=== PATIENT | female | born 1940 | race Asian ===

== ENCOUNTER 2021-07-20 17:35 | Emergency (ER) | payer MEDICARE, MEDICAID ==
[~2021-07-20] VITALS: Ht 152.4 cm; Wt 54.5 kg
[2021-07-20 18:25] LABS: BASOPHILS % (AUTO) 0.3 % (0-1); EOSINOPHILS # (AUTO) 0.1 X10'3 (0-0.9); HEMATOCRIT 31.9 % (35.0-45.0); HEMOGLOBIN 10.5 g/dl (12.0-16.0); LYMPHOCYTES # (AUTO) 1.2 X10'3 (1.1-4.8); MEAN CORPUSCULAR HEMOGLOBIN 26.8 PG (27.0-31.0); MEAN CORPUSCULAR HGB CONC 32.7 g/dL (33.0-36.5); MEAN CORPUSCULAR VOLUME 81.9 FL (78-98); MEAN PLATELET VOLUME 9.1 FL (7.4-10.4); MONOCYTES # (AUTO) 0.7 X10'3 (0-0.9); MONOCYTES % (AUTO) 6.6 % (2-12); NEUTROPHILS # (AUTO) 8.9 X10'3 (1.8-7.7); NEUTROPHILS % (AUTO) 81.1 % (42-75); PLATELET COUNT 161 X10'3 (140-440); RED CELL DISTRIBUTION WIDTH 16.7 % (11.5-14.5)
[2021-07-20] MEDS ORDERED: normal saline 1000ML IV soln IVB ONE (18:30)
[2021-07-20] MEDS ORDERED: ondansetron/PF 4mg/2ml inj IV ONE (18:30)
[2021-07-20] MEDS ORDERED: pantoprazole 40 MG vial IV ONE (18:30)
[2021-07-20 18:38] LABS: ALANINE AMINOTRANSFERASE 27 U/L (12-78); ALBUMIN/GLOBULIN RATIO 0.7 (1.1-1.5); ALKALINE PHOSPHATASE 114 IU/L (46-116); ANION GAP 10 (8-16); ASPARTATE AMINO TRANSFERASE 16 U/L (10-37); BILIRUBIN,TOTAL 0.6 MG/DL (0.1-1.0); BLOOD UREA NITROGEN 31 MG/DL (7-18); BUN/CREATININE RATIO 22.8 (6.6-38.0); CALCIUM 9.7 MG/DL (8.5-10.1); CHLORIDE 105 MMOL/L (99-107); CREATININE 1.36 MG/DL (0.40-0.90); GLUCOSE 263 MG/DL (70-104); POTASSIUM 4.7 MMOL/L (3.5-5.1); SODIUM 141 MMOL/L (135-145); TOTAL CARBON DIOXIDE 26.1 MMOL/L (24-32); TOTAL PROTEIN 7.3 G/DL (6.4-8.2); eGFR 37 ML/MIN
[2021-07-20 18:59] LABS: LIPASE 430 U/L (73-393)
--- NOTE | 2021-07-20 20:21 | NUR ---
DR JAVIER AWARE OF PT'S FIRST TROPONIN RESULT
[2021-07-20 20:25] LABS: CLARITY,URINE CLEAR (Clear); COLOR,URINE YELLOW (Yellow); GLUCOSE, URINE NEGATIVE (Neg); KETONES,URINE 15 mg/dl (Neg); PROTEIN,URINE NEGATIVE (Neg); UA COLLECTION TYPE CLN CATCH MIDSTREAM
[2021-07-20 20:26] LABS: LEUKOCYTE ESTERASE ,URINE NEGATIVE (Neg); NITRITES, URINE NEGATIVE (Neg); OCCULT BLOOD,URINE Trace (Neg); UROBILINOGEN,URINE 0.2 E.U/dL (0.2-1.0)
[2021-07-20 20:34] LABS: BACTERIA,URINE NONE SEEN /HPF (Neg); MUCUS STRANDS FEW /LPF (Neg); RBC,URINE 0-2 /HPF (0-2); SQUAMOUS EPITHELIAL CELL,UR FEW /LPF (FEW); WBC,URINE 0-4 /HPF (0-4)
[2021-07-20] MEDS ORDERED: PANT-47 PO (21:21)
[2021-07-20] MEDS ORDERED: ONDA8TAB13 PO (21:21)
[2021-07-20 21:58] VITALS: BP 124/75
== END 2021-07-20 21:48 | disposition home or self-care (01) ==
LOC: ER 17:36
DX: R10.13 Epigastric pain (principal); R19.7 Diarrhea, unspecified; K29.80 Duodenitis without bleeding; I10 Essential (primary) hypertension; E11.9 Type 2 diabetes mellitus without complications; Z87.442 Personal history of urinary calculi; Z87.11 Personal history of peptic ulcer disease; Z86.2 Personal history of diseases of the blood and blood-forming organs and certain disorders involving the immune mechanism
CPT/HCPCS: 36415; 71045; 74176; 80053; 81001; 83605; 83690; 83880; 84484; 85025; 93005; 96374; 96375; 99285; C9113; J2405; J7030

== ENCOUNTER 2021-11-01 12:45 | Inpatient (IN) | payer MEDICARE, MEDICAID ==
[~2021-11-01] VITALS: Ht 154.9 cm; Wt 63.6 kg
[~2021-11-01 12:45] MED LIST: ONDA8TAB13 PO; PANT-47 PO
[2021-11-01 13:52] LABS: BASOPHILS % (AUTO) 0.1 % (0-1); EOSINOPHILS # (AUTO) 0.1 X10'3 (0-0.9); EOSINOPHILS % (AUTO) 0.7 % (0-6); HEMATOCRIT 24.4 % (35.0-45.0); HEMOGLOBIN 7.6 g/dl (12.0-16.0); LYMPHOCYTES # (AUTO) 0.6 X10'3 (1.1-4.8); LYMPHOCYTES % (AUTO) 3.3 % (21-51); MEAN CORPUSCULAR HEMOGLOBIN 26.6 PG (27.0-31.0); MEAN CORPUSCULAR VOLUME 85.9 FL (78-98); MEAN PLATELET VOLUME 9.5 FL (7.4-10.4); MONOCYTES # (AUTO) 1.2 X10'3 (0-0.9); MONOCYTES % (AUTO) 6.1 % (2-12); NEUTROPHILS # (AUTO) 17.5 X10'3 (1.8-7.7); NEUTROPHILS % (AUTO) 89.8 % (42-75); PLATELET COUNT 133 X10'3 (140-440); RED BLOOD COUNT 2.85 X10'6 (4.20-5.60); RED CELL DISTRIBUTION WIDTH 18.3 % (11.5-14.5); WHITE BLOOD COUNT 19.4 X10'3 (4.5-11.0)
[2021-11-01 14:16] LABS: ALANINE AMINOTRANSFERASE 20 U/L (12-78); ALBUMIN 2.1 G/DL (3.4-5.0); ALBUMIN/GLOBULIN RATIO 0.4 (1.1-1.5); ALKALINE PHOSPHATASE 241 IU/L (46-116); ANION GAP 14 (8-16); ASPARTATE AMINO TRANSFERASE 13 U/L (10-37); BILIRUBIN,TOTAL 0.4 MG/DL (0.1-1.0); BLOOD UREA NITROGEN 61 MG/DL (7-18); BUN/CREATININE RATIO 23.9 (6.6-38.0); CALCIUM 9.8 MG/DL (8.5-10.1); CHLORIDE 106 MMOL/L (99-107); CREATININE 2.55 MG/DL (0.40-0.90); GLUCOSE 423 MG/DL (70-104); LIPASE 81 U/L (73-393); SODIUM 133 MMOL/L (135-145); TOTAL PROTEIN 6.8 G/DL (6.4-8.2); eGFR 18 ML/MIN
[2021-11-01 14:20] LABS: POTASSIUM 6.4 MMOL/L (3.5-5.1); TOTAL CARBON DIOXIDE 13.5 MMOL/L (24-32)
[2021-11-01 15:08] LABS: ANISOCYTOSIS 2+; PLATELET ESTIMATE DECREASED; TOTAL CELLS COUNTED 100
[2021-11-01 15:09] LABS: BURR CELLS 2+; SCHISTOCYTES FEW
[2021-11-01 15:12] LABS: ROULEAUX 1+
[2021-11-01] MEDS ORDERED: normal saline 1000ml 1,000 ML IV ONE (16:25)
[2021-11-01] MEDS ORDERED: ondansetron/PF 4mg/2ml inj IV ONE (16:25)
[2021-11-01] MEDS ORDERED: pantoprazole IV 80 MG in normal saline 100ml IV soln 100 ML IV ONE (16:25)
[2021-11-01 16:42] LABS: APTT 29 SECONDS (22-32)
[2021-11-01 16:43] LABS: ETHANOL < 0.010 GM/DL (0.0-0.010)
[2021-11-01] MEDS: pantoprazole 40MG/NS 100ML BAG 100 ML IV SCH ×3 (16:54→18:00)
[2021-11-01 17:12] LABS: CLARITY,URINE CLOUDY (Clear); COLOR,URINE YELLOW (Yellow); GLUCOSE, URINE 250 mg/dl (Neg); KETONES,URINE NEGATIVE (Neg); LEUKOCYTE ESTERASE ,URINE MODERATE (Neg); NITRITES, URINE POSITIVE (Neg); OCCULT BLOOD,URINE MODERATE (Neg); PH,URINE 5.5 (4.8-8.0); PROTEIN,URINE 100 mg/dl (Neg); UROBILINOGEN,URINE 0.2 E.U/dL (0.2-1.0)
[2021-11-01 17:14] LABS: UA COLLECTION TYPE OTHER
[2021-11-01 17:20] LABS: BACTERIA,URINE 4+ /HPF (Neg); COARSE GRANULAR CAST 0-3 /LPF (NEGATIVE); MUCUS STRANDS NONE SEEN /LPF (Neg); SQUAMOUS EPITHELIAL CELL,UR MANY /LPF (FEW); WBC CLUMPS,URINE MODERATE /HPF (NEGATIVE); WBC,URINE 50-100 /HPF (0-4); YEAST FEW /HPF (NEGATIVE)
--- NOTE | 2021-11-01 17:24 | NUR ---
Lab rejected urine specimen due to contamination. IZABEL Morales was notified.
[2021-11-01 18:15] LABS: MEAN CORPUSCULAR HEMOGLOBIN 26.7 PG (27.0-31.0); MEAN CORPUSCULAR HGB CONC 31.7 g/dL (33.0-36.5); MEAN CORPUSCULAR VOLUME 84.2 FL (78-98); MEAN PLATELET VOLUME 9.2 FL (7.4-10.4); PLATELET COUNT 120 X10'3 (140-440); RED BLOOD COUNT 2.39 X10'6 (4.20-5.60); RED CELL DISTRIBUTION WIDTH 17.6 % (11.5-14.5); WHITE BLOOD COUNT 12.9 X10'3 (4.5-11.0)
[2021-11-01 18:23] LABS: HEMATOCRIT 20.1 % (35.0-45.0); HEMOGLOBIN 6.4 g/dl (12.0-16.0)
[2021-11-01 18:29] LABS: ALANINE AMINOTRANSFERASE 15 U/L (12-78); ALBUMIN 1.8 G/DL (3.4-5.0); ALBUMIN/GLOBULIN RATIO 0.5 (1.1-1.5); ALKALINE PHOSPHATASE 190 IU/L (46-116); ANION GAP 11 (8-16); ASPARTATE AMINO TRANSFERASE 9 U/L (10-37); BILIRUBIN,TOTAL 0.3 MG/DL (0.1-1.0); BLOOD UREA NITROGEN 58 MG/DL (7-18); BUN/CREATININE RATIO 26.1 (6.6-38.0); CALCIUM 8.5 MG/DL (8.5-10.1); CHLORIDE 110 MMOL/L (99-107); CREATININE 2.22 MG/DL (0.40-0.90); GLUCOSE 360 MG/DL (70-104); POTASSIUM 5.7 MMOL/L (3.5-5.1); SODIUM 136 MMOL/L (135-145); TOTAL PROTEIN 5.8 G/DL (6.4-8.2); eGFR 21 ML/MIN
[2021-11-01 18:36] LABS: TOTAL CARBON DIOXIDE 14.7 MMOL/L (24-32)
[2021-11-01] MEDS ORDERED: GABA-530 PO (19:12)
[2021-11-01] MEDS ORDERED: OMEP-50 PO (19:17)
[2021-11-01] MEDS ORDERED: FERR-119 PO (19:17)
[2021-11-01] MEDS ORDERED: GLIP10TA11 PO (19:17)
[2021-11-01] MEDS ORDERED: MV-M1TAB19 PO (19:17)
[2021-11-01] MEDS ORDERED: METF-1203 PO (19:17)
[2021-11-01] MEDS ORDERED: LISI10TA27 PO (19:17)
[2021-11-01] MEDS ORDERED: GEMF600T89 PO (19:17)
[2021-11-01] MEDS ORDERED: pantoprazole 40MG/NS 100ML BAG 100 ML IV ONE (19:20)
[2021-11-01 20:24] VITALS: BP 119/56
[2021-11-01 20:43] VITALS: BP 135/68
--- NOTE | 2021-11-01 21:00 | NUR ---
Patient complaint of Chest pain while transfusing 1 unit of RBC. EKG ordered. Rate of transfusion slowed to 125 ml/hr, and patient repositioned and head of bed elevated. MD notified. MD ordered to maintain transfusion at a low rate.
[2021-11-01 21:51] VITALS: BP 153/74
[2021-11-01] MEDS ORDERED: CefTRIAXone/D5W-Rocephin 1gm 50 ML IV ONE (22:15)
[2021-11-01] MEDS ORDERED: MESSAGE TO PHARMACY PO ONE (22:35)
[2021-11-01] MEDS ORDERED: magnesium 2GM in 50ml NS 50 ML IV PRN (22:35)
[2021-11-01] MEDS ORDERED: dextrose ORAL solution 15 GM/59 ML bottle PO PRN ×2 (22:35)
[2021-11-01] MEDS ORDERED: ondansetron/PF 4mg/2ml inj IV PRN (22:35)
[2021-11-01] MEDS ORDERED: glucagon, human recombinant 1mg kit SUBCUT PRN (22:35)
[2021-11-01] MEDS ORDERED: mag hydrox/Alum hydrox/simeth 30ml oral suspension PO PRN (22:35)
[2021-11-01] MEDS ORDERED: magnesium hydroxide 30ml (MOM) UD suspension PO PRN (22:35)
[2021-11-01] MEDS ORDERED: PERFLUTREN PROTEIN-A MICROSPHR (Optison) 0.22 MG/ML 3ML VIAL IV ONE (22:35)
[2021-11-01] MEDS ORDERED: dextrose 50%-water 50ml dispensing syringe IV PRN ×2 (22:35)
[2021-11-01 22:46] LABS: MAGNESIUM 1.4 MG/DL (1.5-2.4)
[2021-11-01 22:53] LABS: HEMOGLOBIN A1C 10.3 % (4.5-6.2)
[2021-11-01 22:58] VITALS: BP 174/79
[2021-11-01] MEDS ORDERED: CHOL3000 PO (23:03)
[2021-11-01] MEDS ORDERED: GABA300C PO (23:03)
--- NOTE | 2021-11-01 23:59 | NUR ---
Patient temp 101.4. notified. ordered Tylenol 650 mg PO and to transfuse second unit of RBC's when patient temp decreases.
[2021-11-02] VITALS (10 sets, daily range): BP systolic 83–165; BP diastolic 47–90
--- NOTE | 2021-11-02 | NUR ---
Patient in room WILLIE 357. I have received report from IZABEL Padilla and had the opportunity to ask questions and assume patient care.
[2021-11-02] MEDS: acetaminophen 325mg tablet PO PRN (00:25)
--- NOTE | 2021-11-02 00:30 | NUR ---
pt arrived via gurney. pt transferred to bed and settled in.
--- NOTE | 2021-11-02 02:03 | NUR ---
notified. Orders received.
--- NOTE | 2021-11-02 07:11 | NUR ---
Patient in room WILLIE 357. I have received report from Merari and had the opportunity to ask questions and assume patient care.
[2021-11-02] MEDS: K and/or MAG REPLACEMENT MC SCH ×2 (08:00→19:48)
[2021-11-02] MEDS ORDERED: docusate sod 100mg capsule PO SCH (08:00)
[2021-11-02] MEDS ORDERED: pantoprazole 40MG/NS 100ML BAG 100 ML IV SCH (08:00)
[2021-11-02 08:23] LABS: BASOPHILS % (AUTO) 0.1 % (0-1); EOSINOPHILS # (AUTO) 0.1 X10'3 (0-0.9); EOSINOPHILS % (AUTO) 0.3 % (0-6); HEMATOCRIT 30.9 % (35.0-45.0); HEMOGLOBIN 9.9 g/dl (12.0-16.0); LYMPHOCYTES # (AUTO) 0.6 X10'3 (1.1-4.8); MEAN CORPUSCULAR HEMOGLOBIN 28.3 PG (27.0-31.0); MEAN CORPUSCULAR HGB CONC 32.1 g/dL (33.0-36.5); MEAN PLATELET VOLUME 10.6 FL (7.4-10.4); MONOCYTES # (AUTO) 1.6 X10'3 (0-0.9); NEUTROPHILS # (AUTO) 25.4 X10'3 (1.8-7.7); NEUTROPHILS % (AUTO) 91.6 % (42-75); PLATELET COUNT 108 X10'3 (140-440); RED BLOOD COUNT 3.51 X10'6 (4.20-5.60)
[2021-11-02 08:37] LABS: ALANINE AMINOTRANSFERASE 16 U/L (12-78); ALBUMIN 1.9 G/DL (3.4-5.0); ALBUMIN/GLOBULIN RATIO 0.5 (1.1-1.5); ALKALINE PHOSPHATASE 205 IU/L (46-116); ANION GAP 10 (8-16); ASPARTATE AMINO TRANSFERASE 25 U/L (10-37); BILIRUBIN,TOTAL 0.6 MG/DL (0.1-1.0); BLOOD UREA NITROGEN 57 MG/DL (7-18); BUN/CREATININE RATIO 23.7 (6.6-38.0); CALCIUM 9.1 MG/DL (8.5-10.1); CHLORIDE 115 MMOL/L (99-107); CREATININE 2.41 MG/DL (0.40-0.90); GLUCOSE 183 MG/DL (70-104); MAGNESIUM 1.2 MG/DL (1.5-2.4); SODIUM 139 MMOL/L (135-145); TOTAL PROTEIN 6.1 G/DL (6.4-8.2); eGFR 19 ML/MIN
[2021-11-02 08:40] LABS: POTASSIUM 6.7 MMOL/L (3.5-5.1); TOTAL CARBON DIOXIDE 14.4 MMOL/L (24-32)
[2021-11-02 08:44] LABS: WHITE BLOOD COUNT 27.7 X10'3 (4.5-11.0)
[2021-11-02] MEDS ORDERED: calcium gluconate inj. 1 GM in normal saline 100ml IV soln 100 ML IV ONE (09:10)
[2021-11-02] MEDS ORDERED: albuterol 2.5 MG/3 ML nebule NEB ONE (09:10)
[2021-11-02] MEDS ORDERED: insulin regular, human 10 units/0.1 ml syringe IV ONE (09:10)
[2021-11-02] MEDS ORDERED: normal saline 1000ml 1,000 ML IV SCH (09:10)
[2021-11-02] MEDS ORDERED: sodium polystyrene sulfonate 15gm/60ml oral suspension PO ONE (09:10)
[2021-11-02] MEDS ORDERED: dextrose 50%-water 50ml dispensing syringe IV ONE ×2 (09:10→10:25)
[2021-11-02] MEDS ORDERED: vancomycin/NS 1 GM ADD-VANTAGE 250 ML X 1 DOSE IV ONE (09:25)
[2021-11-02] MEDS ORDERED: vancomycin/NS 1 GM ADD-VANTAGE 250 ML X 1 DOSE IV PRN (09:25)
--- NOTE | 2021-11-02 09:26 | NUR ---
PAGER ID: [phone] MESSAGE: Christina [place] in 357B. Order for Kayexalate. Currently patient is NPO with suspected GI bleed. Please call to confirm orders. thank you Karlos
--- NOTE | 2021-11-02 09:27 | NUR ---
Confirmed with Dr Carpio, to administer Kayexalate
[2021-11-02] MEDS ORDERED: CALCIUM GLUC 1gm/50ml NACL,iso 50 ML IV ONE (09:30)
--- NOTE | 2021-11-02 09:30 | NUR ---
PAGER ID: [phone] MESSAGE: Natalya [place] [id number] Dr cancelled EGD for today, states will need to re order EGD when stable thank you Karlos
[2021-11-02 09:49] LABS: ANISOCYTOSIS 1+; PLATELET ESTIMATE DECREASED; POIKILOCYTOSIS FEW; TOTAL CELLS COUNTED 100
[2021-11-02] MEDS ORDERED: albuterol 2.5 MG/3 ML nebule CONTNEB STA (10:24)
[2021-11-02] MEDS ORDERED: insulin regular, human U-100 3ml vial - multi-dose IV ONE (10:25)
[2021-11-02] MEDS ORDERED: sodium bicarbonate (8.4%) 1 mEq/ml syringe IV ONE (10:25)
[2021-11-02] MEDS ORDERED: pantoprazole 40MG/D5 100ML BAG 100 ML IV SCH (11:00)
--- NOTE | 2021-11-02 11:10 | NUR ---
Per NSG supervisor vegetable farming and Jeffrey in pharmacy, ok for surgical scrub technician to push IV humulin on the surgical floor, per Dr Carpio and Dr Hodge's order. agriculture manager aware.
[2021-11-02] MEDS: SODIUM ZIRCONIUM CYCLOSILICATE 10 GM POWD.PACK PO SCH ×3 (12:10→20:31)
[2021-11-02] MEDS: pantoprazole 40MG/NS 100ML BAG 100 ML IV SCH ×3 (12:24→20:30)
[2021-11-02] MEDS: sodium bicarbonate (8.4%) inj. 150 MEQ in dextrose 5%-water 1,000 ML IV SCH ×2 (12:26→20:04)
[2021-11-02] MEDS: insulin Lispro (HumaLOG) vial - multi-dose SQ SCH ×2 (12:59→17:37)
[2021-11-02 13:37] LABS: ALBUMIN 1.6 G/DL (3.4-5.0); ANION GAP 8 (8-16); BLOOD UREA NITROGEN 52 MG/DL (7-18); CALCIUM 8.5 MG/DL (8.5-10.1); CHLORIDE 110 MMOL/L (99-107); CREATININE 2.36 MG/DL (0.40-0.90); POTASSIUM 4.8 MMOL/L (3.5-5.1); SODIUM 136 MMOL/L (135-145); TOTAL CARBON DIOXIDE 17.7 MMOL/L (24-32); eGFR 20 ML/MIN
[2021-11-02 13:38] LABS: GLUCOSE 464 MG/DL (70-104)
--- NOTE | 2021-11-02 14:07 | NUR ---
DM consult: Pt with T2DM with A1c 10.3%. Pt appeared to be sleeping during RD visit. Written and verbal DM education was provided to patient's daughter at bedside. Per daughter pt sees a physician regularly, takes medications per rx, and checks BG levels every day. RD contact information provided with encouragement to reach out if needed. Per daughter pt does not have food allergies and does have some difficulty swallowing hard foods. Daughter requests soft to chew foods with diet advancement, dietary notified. Will continue to follow. Addendum: 11/02/21 at [address] Amended: Links added.
[2021-11-02] MEDS ORDERED: piperacillin/tazo 3.375gm/50ml 50 ML IV SCH (16:00)
[2021-11-02] MEDS: amLODIPine 5mg tablet PO SCH (16:43)
--- NOTE | 2021-11-02 18:13 | NUR ---
Problems reprioritized. Patient report given to Breana PAIZ, questions answered & plan of care reviewed with Breana PAIZ.
--- NOTE | 2021-11-02 18:58 | NUR ---
Patient in room PCU 3023. I have received report from IZABEL Guerrero, and had the opportunity to ask questions and assume patient care. Daughter in room with pt. No c/o voiced at this time.
[2021-11-02] MEDS: morphine 2 MG/ML inj. syringe IV PRN ×2 (20:07→22:38)
[2021-11-02] MEDS: piperacillin/tazo 3.375gm/50ml 50 ML IV SCH (20:10)
[2021-11-02 20:37] LABS: ALBUMIN 1.9 G/DL (3.4-5.0); ANION GAP 12 (8-16); BLOOD UREA NITROGEN 46 MG/DL (7-18); BUN/CREATININE RATIO 20.4 (6.6-38.0); CHLORIDE 110 MMOL/L (99-107); CREATININE 2.25 MG/DL (0.40-0.90); GLUCOSE 228 MG/DL (70-104); POTASSIUM 4.8 MMOL/L (3.5-5.1); SODIUM 140 MMOL/L (135-145); TOTAL CARBON DIOXIDE 17.9 MMOL/L (24-32); eGFR 21 ML/MIN
[2021-11-02 21:05] LABS: BASOPHILS % (AUTO) 0.3 % (0-1); EOSINOPHILS # (AUTO) 0.1 X10'3 (0-0.9); EOSINOPHILS % (AUTO) 0.5 % (0-6); HEMATOCRIT 29.8 % (35.0-45.0); LYMPHOCYTES # (AUTO) 0.2 X10'3 (1.1-4.8); LYMPHOCYTES % (AUTO) 1.3 % (21-51); MEAN CORPUSCULAR HEMOGLOBIN 28.6 PG (27.0-31.0); MEAN CORPUSCULAR HGB CONC 33.6 g/dL (33.0-36.5); MEAN CORPUSCULAR VOLUME 85.1 FL (78-98); MEAN PLATELET VOLUME 9.9 FL (7.4-10.4); MONOCYTES # (AUTO) 0.2 X10'3 (0-0.9); MONOCYTES % (AUTO) 1.8 % (2-12); NEUTROPHILS # (AUTO) 12.6 X10'3 (1.8-7.7); NEUTROPHILS % (AUTO) 96.1 % (42-75); PLATELET COUNT 97 X10'3 (140-440); RED CELL DISTRIBUTION WIDTH 17.3 % (11.5-14.5); WHITE BLOOD COUNT 13.1 X10'3 (4.5-11.0)
[2021-11-02] MEDS: insulin glargine (Lantus) pen - multi-dose SQ SCH (22:28)
[2021-11-03] MEDS: pantoprazole 40MG/NS 100ML BAG 100 ML IV SCH ×5 (01:00→22:09)
[2021-11-03] MEDS: sodium bicarbonate (8.4%) inj. 150 MEQ in dextrose 5%-water 1,000 ML IV SCH ×2 (02:20→22:09)
[2021-11-03] MEDS: VANCOMYCIN LEVEL IV SCH (02:58)
[2021-11-03 03:29] LABS: BASOPHILS # (AUTO) 0.1 X10'3 (0-0.2); BASOPHILS % (AUTO) 0.3 % (0-1); EOSINOPHILS # (AUTO) 0.1 X10'3 (0-0.9); EOSINOPHILS % (AUTO) 0.4 % (0-6); HEMATOCRIT 26.8 % (35.0-45.0); HEMOGLOBIN 8.8 g/dl (12.0-16.0); LYMPHOCYTES # (AUTO) 0.6 X10'3 (1.1-4.8); LYMPHOCYTES % (AUTO) 2.8 % (21-51); MEAN CORPUSCULAR HEMOGLOBIN 28.4 PG (27.0-31.0); MEAN CORPUSCULAR HGB CONC 32.9 g/dL (33.0-36.5); MEAN CORPUSCULAR VOLUME 86.1 FL (78-98); MEAN PLATELET VOLUME 10.2 FL (7.4-10.4); MONOCYTES # (AUTO) 1.4 X10'3 (0-0.9); MONOCYTES % (AUTO) 6.4 % (2-12); NEUTROPHILS # (AUTO) 19.5 X10'3 (1.8-7.7); NEUTROPHILS % (AUTO) 90.1 % (42-75); PLATELET COUNT 94 X10'3 (140-440); RED BLOOD COUNT 3.11 X10'6 (4.20-5.60); RED CELL DISTRIBUTION WIDTH 17.4 % (11.5-14.5); WHITE BLOOD COUNT 21.7 X10'3 (4.5-11.0)
[2021-11-03 03:37] LABS: ALANINE AMINOTRANSFERASE 13 U/L (12-78); ALBUMIN 1.6 G/DL (3.4-5.0); ALBUMIN/GLOBULIN RATIO 0.4 (1.1-1.5); ALKALINE PHOSPHATASE 184 IU/L (46-116); ANION GAP 8 (8-16); ASPARTATE AMINO TRANSFERASE 17 U/L (10-37); BILIRUBIN,TOTAL 0.8 MG/DL (0.1-1.0); BLOOD UREA NITROGEN 42 MG/DL (7-18); BUN/CREATININE RATIO 19.8 (6.6-38.0); CALCIUM 8.4 MG/DL (8.5-10.1); CHLORIDE 112 MMOL/L (99-107); CREATININE 2.12 MG/DL (0.40-0.90); GLUCOSE 231 MG/DL (70-104); MAGNESIUM 1.1 MG/DL (1.5-2.4); POTASSIUM 5.4 MMOL/L (3.5-5.1); SODIUM 142 MMOL/L (135-145); TOTAL CARBON DIOXIDE 21.7 MMOL/L (24-32); TOTAL PROTEIN 5.4 G/DL (6.4-8.2); VANCOMYCIN,RANDOM 11.4 UG/ML; eGFR 22 ML/MIN
[2021-11-03] MEDS: insulin Lispro (HumaLOG) vial - multi-dose SQ SCH ×5 (05:40→22:02)
[2021-11-03 06:00] VITALS: BP 139/69
--- NOTE | 2021-11-03 06:59 | NUR ---
Problems reprioritized. Patient report given, questions answered & plan of care reviewed with IZABEL Guerrero.
[2021-11-03] MEDS: K and/or MAG REPLACEMENT MC SCH ×2 (08:00→20:00)
[2021-11-03] MEDS: SODIUM ZIRCONIUM CYCLOSILICATE 10 GM POWD.PACK PO SCH ×3 (08:54→21:00)
[2021-11-03] MEDS: piperacillin/tazo 3.375gm/50ml 50 ML IV SCH ×2 (08:55→20:31)
[2021-11-03] MEDS: amLODIPine 5mg tablet PO SCH (08:55)
[2021-11-03] MEDS: morphine 2 MG/ML inj. syringe IV PRN ×4 (08:56→20:34)
[2021-11-03 09:23] LABS: ALBUMIN 1.5 G/DL (3.4-5.0); ANION GAP 6 (8-16); BLOOD UREA NITROGEN 37 MG/DL (7-18); BUN/CREATININE RATIO 18.2 (6.6-38.0); CALCIUM 8.2 MG/DL (8.5-10.1); CHLORIDE 109 MMOL/L (99-107); CREATININE 2.03 MG/DL (0.40-0.90); GLUCOSE 252 MG/DL (70-104); POTASSIUM 4.6 MMOL/L (3.5-5.1); SODIUM 142 MMOL/L (135-145); TOTAL CARBON DIOXIDE 26.7 MMOL/L (24-32); eGFR 24 ML/MIN
[2021-11-03 11:00] VITALS: BP 116/65
[2021-11-03 11:19] LABS: CLARITY,URINE SLIGHTLY CLOUDY (Clear); COLOR,URINE YELLOW (Yellow); GLUCOSE, URINE NEGATIVE (Neg); KETONES,URINE NEGATIVE (Neg); LEUKOCYTE ESTERASE ,URINE NEGATIVE (Neg); NITRITES, URINE NEGATIVE (Neg); OCCULT BLOOD,URINE MODERATE (Neg); PROTEIN,URINE 30 mg/dl (Neg)
[2021-11-03 11:21] LABS: UA COLLECTION TYPE FOLEY CATH
[2021-11-03 11:27] LABS: BACTERIA,URINE FEW /HPF (Neg); RBC,URINE 20-50 /HPF (0-2)
[2021-11-03 11:28] LABS: COARSE GRANULAR CAST 0-3 /LPF (NEGATIVE)
[2021-11-03 11:29] LABS: SQUAMOUS EPITHELIAL CELL,UR NONE SEEN /LPF (FEW)
[2021-11-03] MEDS ORDERED: vancomycin/NS 1 GM ADD-VANTAGE 250 ML X 1 DOSE IV ONE (11:45)
[2021-11-03 13:06] LABS: ALBUMIN 1.6 G/DL (3.4-5.0); ANION GAP 5 (8-16); BLOOD UREA NITROGEN 36 MG/DL (7-18); CHLORIDE 109 MMOL/L (99-107); GLUCOSE 213 MG/DL (70-104); SODIUM 144 MMOL/L (135-145); TOTAL CARBON DIOXIDE 29.7 MMOL/L (24-32); eGFR 24 ML/MIN
--- NOTE | 2021-11-03 14:04 | NUR ---
late IV vanco Vanco given late due to arriving late from pharmacy. [facility]
--- NOTE | 2021-11-03 14:08 | NUR ---
Yolanda [facility] PAGER ID: [phone] MESSAGE: Dr. Yoon pt in room 3023A Vannesa [place] potassium is 4.0 would you like me to hold the lokelma?
[2021-11-03 15:00] VITALS: BP 157/76
--- NOTE | 2021-11-03 16:25 | NUR ---
severe abd pain PAGER ID: [phone] MESSAGE: Dr. Yoon pt in room 3023A Felix is complaining of severe abdominal pain that wasn't relieved with IV morphine; I told her not to eat anything else for the time being; I didn't know if it coincided with her lunch. [facility]
--- NOTE | 2021-11-03 16:28 | NUR ---
Per Dr. Yoon place patient as NPO due to severe abdominal pain. No further orders at this time. [facility]
[2021-11-03 17:21] LABS: ALBUMIN 1.7 G/DL (3.4-5.0); ANION GAP 6 (8-16); BLOOD UREA NITROGEN 32 MG/DL (7-18); BUN/CREATININE RATIO 18.2 (6.6-38.0); CALCIUM 7.8 MG/DL (8.5-10.1); CHLORIDE 105 MMOL/L (99-107); CREATININE 1.76 MG/DL (0.40-0.90); GLUCOSE 363 MG/DL (70-104); POTASSIUM 3.8 MMOL/L (3.5-5.1); SODIUM 140 MMOL/L (135-145); TOTAL CARBON DIOXIDE 28.7 MMOL/L (24-32); eGFR 28 ML/MIN
--- NOTE | 2021-11-03 17:23 | NUR ---
Pt. now NPO; blood sugar 309, which qualifies her for 19u on a level 5; With patient not eating, RN will give 10u and continue to monitor tonight; Will report off to NOC shift.
[2021-11-03 18:00] VITALS: BP 134/68
--- NOTE | 2021-11-03 18:15 | NUR ---
Patient in room PCU 3023. I have received report from IZABEL Guerrero, and had the opportunity to ask questions and assume patient care.
[2021-11-03] MEDS: lactobacillus rhamnosus 10,000 MMU CELLS/CAPSULE PO SCH (20:00)
[2021-11-03] MEDS: diatr meglu/diatrizoate 30ml oral sol.-(3 dose) bottle PO SCH (20:24)
[2021-11-03] MEDS: insulin glargine (Lantus) pen - multi-dose SQ SCH (21:00)
[2021-11-03 21:13] LABS: ALBUMIN 1.6 G/DL (3.4-5.0); ANION GAP 5 (8-16); BLOOD UREA NITROGEN 28 MG/DL (7-18); BUN/CREATININE RATIO 15.6 (6.6-38.0); CALCIUM 7.8 MG/DL (8.5-10.1); CHLORIDE 104 MMOL/L (99-107); CREATININE 1.79 MG/DL (0.40-0.90); GLUCOSE 274 MG/DL (70-104); POTASSIUM 3.7 MMOL/L (3.5-5.1); SODIUM 139 MMOL/L (135-145); TOTAL CARBON DIOXIDE 29.8 MMOL/L (24-32); eGFR 27 ML/MIN
[2021-11-03 22:00] VITALS: BP 145/70
[2021-11-04] MEDS: pantoprazole 40MG/NS 100ML BAG 100 ML IV SCH ×5 (00:50→22:14)
[2021-11-04 02:00] VITALS: BP 138/75
[2021-11-04] MEDS: insulin Lispro (HumaLOG) vial - multi-dose SQ SCH ×3 (02:15→13:55)
[2021-11-04] MEDS: VANCOMYCIN LEVEL IV SCH (03:00)
--- NOTE | 2021-11-04 04:25 | NUR ---
RFA IV discontinued as leaking.
[2021-11-04] MEDS: morphine 2 MG/ML inj. syringe IV PRN ×7 (04:26→22:38)
[2021-11-04 06:00] VITALS: BP 144/81
[2021-11-04 06:07] LABS: ALANINE AMINOTRANSFERASE 13 U/L (12-78); ALBUMIN 1.6 G/DL (3.4-5.0); ALBUMIN/GLOBULIN RATIO 0.4 (1.1-1.5); ALKALINE PHOSPHATASE 167 IU/L (46-116); ANION GAP 5 (8-16); ASPARTATE AMINO TRANSFERASE 13 U/L (10-37); BILIRUBIN,TOTAL 1.2 MG/DL (0.1-1.0); BLOOD UREA NITROGEN 22 MG/DL (7-18); BUN/CREATININE RATIO 13.7 (6.6-38.0); CALCIUM 7.9 MG/DL (8.5-10.1); CHLORIDE 102 MMOL/L (99-107); CREATININE 1.61 MG/DL (0.40-0.90); GLUCOSE 110 MG/DL (70-104); POTASSIUM 3.3 MMOL/L (3.5-5.1); SODIUM 141 MMOL/L (135-145); TOTAL CARBON DIOXIDE 34.3 MMOL/L (24-32); TOTAL PROTEIN 5.7 G/DL (6.4-8.2); VANCOMYCIN,RANDOM 17.1 UG/ML; eGFR 31 ML/MIN
[2021-11-04] MEDS: sodium bicarbonate (8.4%) inj. 150 MEQ in dextrose 5%-water 1,000 ML IV SCH (06:35)
--- NOTE | 2021-11-04 06:45 | NUR ---
Problems reprioritized. Patient report given, questions answered & plan of care reviewed with Yolanda.
[2021-11-04 06:57] LABS: BASOPHILS % (AUTO) 0 % (0-1); EOSINOPHILS # (AUTO) 0.1 X10'3 (0-0.9); EOSINOPHILS % (AUTO) 0.5 % (0-6); HEMATOCRIT 27.1 % (35.0-45.0); HEMOGLOBIN 9.1 g/dl (12.0-16.0); LYMPHOCYTES # (AUTO) 0.6 X10'3 (1.1-4.8); LYMPHOCYTES % (AUTO) 4.8 % (21-51); MEAN CORPUSCULAR HEMOGLOBIN 28.4 PG (27.0-31.0); MEAN CORPUSCULAR HGB CONC 33.5 g/dL (33.0-36.5); MEAN CORPUSCULAR VOLUME 84.7 FL (78-98); MEAN PLATELET VOLUME 10.8 FL (7.4-10.4); MONOCYTES # (AUTO) 0.9 X10'3 (0-0.9); MONOCYTES % (AUTO) 7.1 % (2-12); NEUTROPHILS # (AUTO) 10.5 X10'3 (1.8-7.7); NEUTROPHILS % (AUTO) 87.6 % (42-75); PLATELET COUNT 77 X10'3 (140-440); RED BLOOD COUNT 3.19 X10'6 (4.20-5.60); RED CELL DISTRIBUTION WIDTH 17.3 % (11.5-14.5)
[2021-11-04] MEDS: SODIUM ZIRCONIUM CYCLOSILICATE 10 GM POWD.PACK PO SCH (07:26)
[2021-11-04] MEDS: K and/or MAG REPLACEMENT MC SCH ×2 (07:26→20:00)
[2021-11-04] MEDS: magnesium 4gm in 100ml NS 100 ML IV PRN ×2 (07:34→16:44)
[2021-11-04] MEDS: diatr meglu/diatrizoate 30ml oral sol.-(3 dose) bottle PO SCH ×2 (07:34→13:11)
[2021-11-04] MEDS: potassium CL 10mEq/100ml bag 100 ML IV PRN ×3 (07:35→19:59)
[2021-11-04] MEDS: lactobacillus rhamnosus 10,000 MMU CELLS/CAPSULE PO SCH ×2 (07:35→20:09)
[2021-11-04] MEDS: amLODIPine 5mg tablet PO SCH (07:35)
[2021-11-04] MEDS: piperacillin/tazo 3.375gm/50ml 50 ML IV SCH ×2 (07:35→20:00)
[2021-11-04 08:04] LABS: LARGE PLATELETS FEW; PLATELET ESTIMATE DECREASED
--- NOTE | 2021-11-04 08:21 | NUR ---
Oral contrast Oral contrast not given by [facility] shift nurse; Spoke to Ash in CT scan and informed him of 2100 dose not given; I also informed him the 0700 dose was given; Per tech hold off on next dose until lead broadcast technician arrives; Will await phone call [facility]
--- NOTE | 2021-11-04 08:40 | NUR ---
Low magnesium Per Dr. Yoon give two 4g of magnesium for mag level of 1. [facility]
[2021-11-04 10:00] VITALS: BP 137/77
[2021-11-04 10:08] LABS: ALBUMIN 1.6 G/DL (3.4-5.0); ANION GAP 5 (8-16); BLOOD UREA NITROGEN 20 MG/DL (7-18); BUN/CREATININE RATIO 13.5 (6.6-38.0); CHLORIDE 100 MMOL/L (99-107); CREATININE 1.48 MG/DL (0.40-0.90); GLUCOSE 181 MG/DL (70-104); POTASSIUM 3.2 MMOL/L (3.5-5.1); SODIUM 139 MMOL/L (135-145); TOTAL CARBON DIOXIDE 34.5 MMOL/L (24-32); eGFR 34 ML/MIN
--- NOTE | 2021-11-04 10:55 | NUR ---
Per Dr. Yoon stop sodium bicarb gtt. due to CO2 level Yolanda PCU
[2021-11-04 13:53] LABS: ALBUMIN 1.7 G/DL (3.4-5.0); ANION GAP 7 (8-16); BLOOD UREA NITROGEN 20 MG/DL (7-18); BUN/CREATININE RATIO 13.6 (6.6-38.0); CALCIUM 8.2 MG/DL (8.5-10.1); CHLORIDE 98 MMOL/L (99-107); CREATININE 1.47 MG/DL (0.40-0.90); GLUCOSE 188 MG/DL (70-104); POTASSIUM 3.4 MMOL/L (3.5-5.1); SODIUM 138 MMOL/L (135-145); TOTAL CARBON DIOXIDE 32.7 MMOL/L (24-32); eGFR 34 ML/MIN
[2021-11-04 15:00] VITALS: BP_SYST 148; BP_SYST 153; BP_DIAS 72; BP_DIAS 84
--- NOTE | 2021-11-04 17:00 | NUR ---
blood sugar blood sugar 138; previously documented wrong in intervention; Yolanda [facility]
--- NOTE | 2021-11-04 18:17 | NUR ---
Problems reprioritized. Patient report given to Yojana PAIZ, questions answered & plan of care reviewed with Yojana PAIZ. Yojana PAIZ aware of 10mEq left to [facility]. [facility]
[2021-11-04 18:19] LABS: ALBUMIN 1.8 G/DL (3.4-5.0); ANION GAP 5 (8-16); BLOOD UREA NITROGEN 18 MG/DL (7-18); BUN/CREATININE RATIO 12.5 (6.6-38.0); CALCIUM 8.2 MG/DL (8.5-10.1); CHLORIDE 99 MMOL/L (99-107); CREATININE 1.44 MG/DL (0.40-0.90); GLUCOSE 134 MG/DL (70-104); POTASSIUM 3.4 MMOL/L (3.5-5.1); SODIUM 136 MMOL/L (135-145); TOTAL CARBON DIOXIDE 32.2 MMOL/L (24-32); eGFR 35 ML/MIN
[2021-11-04] MEDS ORDERED: morphine 2 MG/ML inj. syringe IV PRN (21:55)
[2021-11-04] MEDS: insulin glargine (Lantus) pen - multi-dose SQ SCH (22:10)
[2021-11-04 23:51] LABS: ALBUMIN 1.8 G/DL (3.4-5.0); ANION GAP 7 (8-16); BLOOD UREA NITROGEN 18 MG/DL (7-18); BUN/CREATININE RATIO 13.5 (6.6-38.0); CALCIUM 8.1 MG/DL (8.5-10.1); CHLORIDE 96 MMOL/L (99-107); CREATININE 1.33 MG/DL (0.40-0.90); GLUCOSE 174 MG/DL (70-104); POTASSIUM 3.6 MMOL/L (3.5-5.1); SODIUM 132 MMOL/L (135-145); TOTAL CARBON DIOXIDE 29.5 MMOL/L (24-32); eGFR 38 ML/MIN
[2021-11-05] VITALS (14 sets, daily range): BP systolic 99–162; BP diastolic 58–94
[2021-11-05] MEDS ORDERED: HYDROmorphone inj. 0.5 MG/0.5 ML DISP.SYRIN IV ONE ×2 (00:20)
[2021-11-05] MEDS: pantoprazole 40MG/NS 100ML BAG 100 ML IV SCH ×5 (00:28→20:00)
[2021-11-05] MEDS: morphine 2 MG/ML inj. syringe IV PRN ×4 (04:37→19:48)
[2021-11-05] MEDS: K and/or MAG REPLACEMENT MC SCH ×2 (08:00→20:00)
[2021-11-05 09:08] LABS: BASOPHILS % (AUTO) 0.2 % (0-1); EOSINOPHILS % (AUTO) 0.4 % (0-6); HEMOGLOBIN 10.7 g/dl (12.0-16.0); LYMPHOCYTES # (AUTO) 0.4 X10'3 (1.1-4.8); LYMPHOCYTES % (AUTO) 3.6 % (21-51); MEAN CORPUSCULAR HEMOGLOBIN 28.2 PG (27.0-31.0); MEAN CORPUSCULAR HGB CONC 33.4 g/dL (33.0-36.5); MEAN CORPUSCULAR VOLUME 84.3 FL (78-98); MEAN PLATELET VOLUME 10.5 FL (7.4-10.4); MONOCYTES # (AUTO) 0.6 X10'3 (0-0.9); MONOCYTES % (AUTO) 6.1 % (2-12); NEUTROPHILS # (AUTO) 8.9 X10'3 (1.8-7.7); NEUTROPHILS % (AUTO) 89.7 % (42-75); PLATELET COUNT 108 X10'3 (140-440); RED BLOOD COUNT 3.79 X10'6 (4.20-5.60); WHITE BLOOD COUNT 9.9 X10'3 (4.5-11.0)
[2021-11-05 09:33] LABS: ALANINE AMINOTRANSFERASE 13 U/L (12-78); ALBUMIN 1.8 G/DL (3.4-5.0); ALBUMIN/GLOBULIN RATIO 0.4 (1.1-1.5); ALKALINE PHOSPHATASE 176 IU/L (46-116); ANION GAP 8 (8-16); ASPARTATE AMINO TRANSFERASE 16 U/L (10-37); BILIRUBIN,TOTAL 2.1 MG/DL (0.1-1.0); BLOOD UREA NITROGEN 19 MG/DL (7-18); BUN/CREATININE RATIO 15.1 (6.6-38.0); CALCIUM 8.2 MG/DL (8.5-10.1); CHLORIDE 96 MMOL/L (99-107); CREATININE 1.26 MG/DL (0.40-0.90); GLUCOSE 168 MG/DL (70-104); MAGNESIUM 2.4 MG/DL (1.5-2.4); POTASSIUM 3.6 MMOL/L (3.5-5.1); SODIUM 133 MMOL/L (135-145); TOTAL CARBON DIOXIDE 28.6 MMOL/L (24-32); TOTAL PROTEIN 6.4 G/DL (6.4-8.2); eGFR 41 ML/MIN
--- NOTE | 2021-11-05 10:25 | NUR ---
Initial: Pt admit for upper GIB with acute renal failure, hyperkalemia, and sepsis. Pt with an active clear liquid diet though NPO per EMR. Pt pending EGD per physician notes. Pt would benefit from nutrition support if expected prolonged insufficient diet order, currently day 4 with inadequate nutrition r/t diet order as pt has been documented to be NPO throughout [facility]. LBM 11/01. No appropriate nutrition intervention at this time in view of NPO status. Will continue to follow closely. Recommendations: 1) Advance to CHO controlled diet as medically indicated; regular diet if BG levels well controlled or pt with poor PO intake 2) Soft to chew foods with diet advancement per pt daughter request 3) Monitor need for ONS/additional protein with diet advancement 4) Consider nutrition support if unable to advance diet 5) Bowel care per MD 6) Scaled weight this admit; weekly scaled weights thereafter Addendum: 11/05/21 at [address] Amended: Links added.
[2021-11-05] MEDS: lactobacillus rhamnosus 10,000 MMU CELLS/CAPSULE PO SCH ×2 (10:35→19:48)
[2021-11-05] MEDS: amLODIPine 5mg tablet PO SCH (10:35)
[2021-11-05] MEDS ORDERED: MIDAZolam 1 MG/ML 5ML VIAL ONE (12:41)
[2021-11-05] MEDS ORDERED: fentaNYL/PF 50MCG/1 ML 2ML syringe ONE (12:41)
[2021-11-05] MEDS ORDERED: LIDOcaine Viscous 15ml cup ONE (12:41)
[2021-11-05] MEDS ORDERED: sucralfate 1gm/10ml UD suspension PO SCH (16:00)
[2021-11-05] MEDS: sucralfate 1 gm tablet PO SCH ×2 (17:02→20:00)
[2021-11-05] MEDS: meropenem inj 1 GM in normal saline 100ml IV soln 100 ML IV SCH ×2 (17:02→19:49)
--- NOTE | 2021-11-05 17:45 | NUR ---
Miss Washington has been assessed as indicated. She is resting quietly with her daughter at the bedside. She had the EGD today. she tolerated the procedure well. she was successfully treated for pain x1 this shift. She has been resting quietly since her return from the procedure. positive blood cultures were results by the lab today. new IV antibiotics were ordered and her room was changed to a private room for isolation
--- NOTE | 2021-11-05 20:36 | NUR ---
Pt in bed , family member at bedside and reported that pt continues to complain of midepigastric pain. Pt is no respiratory discomfort. Will page Dr Watson for extra dose of medication.
[2021-11-05] MEDS: HYDROmorphone inj. 0.5 MG/0.5 ML DISP.SYRIN IV PRN (21:03)
[2021-11-05] MEDS: insulin glargine (Lantus) pen - multi-dose SQ SCH (21:19)
[2021-11-05] MEDS: insulin Lispro (HumaLOG) vial - multi-dose SQ SCH (21:21)
[2021-11-05] MEDS: acetaminophen 325mg tablet PO PRN (22:09)
--- NOTE | 2021-11-05 23:26 | NUR ---
Positive blood culture from the anaerobic bottle drawn on 10/05/22 resulted gram positive rods; Dr Dominguez notified and no further order given
[2021-11-06] VITALS (7 sets, daily range): BP systolic 125–170; BP diastolic 65–88
[2021-11-06] MEDS: HYDROmorphone inj. 0.5 MG/0.5 ML DISP.SYRIN IV PRN ×3 (00:58→19:18)
[2021-11-06] MEDS: pantoprazole 40MG/NS 100ML BAG 100 ML IV SCH ×5 (01:01→22:31)
--- NOTE | 2021-11-06 01:08 | NUR ---
Harvey and perineal care done.
[2021-11-06] MEDS ORDERED: acetaminophen 325mg tablet PO PRN (04:40)
[2021-11-06] MEDS ORDERED: HYDROmorphone 1 mg/ml syringe IV PRN ×2 (04:40→10:55)
--- NOTE | 2021-11-06 05:09 | NUR ---
Dr Nash notified of pt's blood culture positive result ( Gram negative rods). Awaiting for his call. He was already notified of the previous blood culture result.
[2021-11-06 06:45] LABS: BASOPHILS % (AUTO) 0.1 % (0-1); EOSINOPHILS % (AUTO) 0.4 % (0-6); HEMATOCRIT 31.3 % (35.0-45.0); HEMOGLOBIN 10.5 g/dl (12.0-16.0); LYMPHOCYTES # (AUTO) 0.3 X10'3 (1.1-4.8); LYMPHOCYTES % (AUTO) 2.7 % (21-51); MEAN CORPUSCULAR HEMOGLOBIN 28.5 PG (27.0-31.0); MEAN CORPUSCULAR HGB CONC 33.6 g/dL (33.0-36.5); MEAN CORPUSCULAR VOLUME 84.7 FL (78-98); MEAN PLATELET VOLUME 10.1 FL (7.4-10.4); MONOCYTES # (AUTO) 0.5 X10'3 (0-0.9); MONOCYTES % (AUTO) 4.2 % (2-12); NEUTROPHILS # (AUTO) 10.4 X10'3 (1.8-7.7); NEUTROPHILS % (AUTO) 92.6 % (42-75); PLATELET COUNT 130 X10'3 (140-440); RED CELL DISTRIBUTION WIDTH 17.1 % (11.5-14.5); WHITE BLOOD COUNT 11.3 X10'3 (4.5-11.0)
[2021-11-06 06:59] LABS: ALANINE AMINOTRANSFERASE 10 U/L (12-78); ALBUMIN 1.8 G/DL (3.4-5.0); ALBUMIN/GLOBULIN RATIO 0.5 (1.1-1.5); ALKALINE PHOSPHATASE 156 IU/L (46-116); ANION GAP 7 (8-16); ASPARTATE AMINO TRANSFERASE 17 U/L (10-37); BILIRUBIN,TOTAL 3.1 MG/DL (0.1-1.0); BLOOD UREA NITROGEN 22 MG/DL (7-18); BUN/CREATININE RATIO 17.5 (6.6-38.0); CALCIUM 7.6 MG/DL (8.5-10.1); CHLORIDE 99 MMOL/L (99-107); CREATININE 1.26 MG/DL (0.40-0.90); GLUCOSE 179 MG/DL (70-104); POTASSIUM 3.7 MMOL/L (3.5-5.1); SODIUM 134 MMOL/L (135-145); TOTAL CARBON DIOXIDE 27.8 MMOL/L (24-32); TOTAL PROTEIN 5.8 G/DL (6.4-8.2); eGFR 41 ML/MIN
[2021-11-06] MEDS: K and/or MAG REPLACEMENT MC SCH ×2 (07:21→20:00)
[2021-11-06] MEDS: meropenem inj 1 GM in normal saline 100ml IV soln 100 ML IV SCH ×2 (08:47→19:22)
[2021-11-06] MEDS: oxyCODONE/APAP 10/325mg tablet PO PRN ×3 (08:47→22:30)
[2021-11-06] MEDS: sucralfate 1 gm tablet PO SCH ×4 (08:47→20:27)
[2021-11-06] MEDS: lactobacillus rhamnosus 10,000 MMU CELLS/CAPSULE PO SCH ×2 (08:47→19:22)
[2021-11-06] MEDS: amLODIPine 5mg tablet PO SCH (08:48)
[2021-11-06] MEDS: insulin Lispro (HumaLOG) vial - multi-dose SQ SCH ×2 (15:16→19:33)
--- NOTE | 2021-11-06 18:06 | NUR ---
Miss Washington has been assessed as indicated. She was successfully treated for pain x2 this shift. She tolerated PO pain meds well. She has family at the bedside. She has been seen by MD and ID. Her family has been informed that there is a possibility of the need for IV ABX after DC from hospital. this is related to positive blood cultures. IV ABX have been well tolerated. IV protonix is continuous and well tolerated Family expressed intreat in moving Miss Washington to a hospital closer to [place] where she is from and there are many family members to assist in her care. They were informed that if the transfer is not medically related it will have to covered with out of pocket costs. This would include transportation and additional hospital stay. She is resting quietly with family at the bedside at this time
--- NOTE | 2021-11-06 18:30 | NUR ---
Problems reprioritized. Patient report given, questions answered & plan of care reviewed with LOIS .
--- NOTE | 2021-11-06 18:30 | NUR ---
Problems reprioritized. Patient report given, questions answered & plan of care reviewed with DICK PAIZ.
[2021-11-06] MEDS: insulin glargine (Lantus) pen - multi-dose SQ SCH (21:00)
[2021-11-07 02:00] VITALS: BP 123/84
[2021-11-07] MEDS: pantoprazole 40MG/NS 100ML BAG 100 ML IV SCH ×5 (02:36→21:00)
[2021-11-07] MEDS: HYDROmorphone inj. 0.5 MG/0.5 ML DISP.SYRIN IV PRN (02:46)
[2021-11-07 06:00] VITALS: BP 148/76
[2021-11-07 06:00] LABS: BASOPHILS % (AUTO) 0.1 % (0-1); EOSINOPHILS # (AUTO) 0.1 X10'3 (0-0.9); EOSINOPHILS % (AUTO) 1.5 % (0-6); HEMATOCRIT 29.4 % (35.0-45.0); HEMOGLOBIN 9.9 g/dl (12.0-16.0); LYMPHOCYTES # (AUTO) 0.6 X10'3 (1.1-4.8); LYMPHOCYTES % (AUTO) 7.5 % (21-51); MEAN CORPUSCULAR HEMOGLOBIN 28.4 PG (27.0-31.0); MEAN CORPUSCULAR HGB CONC 33.7 g/dL (33.0-36.5); MEAN CORPUSCULAR VOLUME 84.1 FL (78-98); MEAN PLATELET VOLUME 9.5 FL (7.4-10.4); MONOCYTES # (AUTO) 0.7 X10'3 (0-0.9); MONOCYTES % (AUTO) 9.2 % (2-12); NEUTROPHILS # (AUTO) 6.5 X10'3 (1.8-7.7); NEUTROPHILS % (AUTO) 81.7 % (42-75); PLATELET COUNT 156 X10'3 (140-440); RED CELL DISTRIBUTION WIDTH 16.8 % (11.5-14.5)
[2021-11-07 06:24] LABS: ALANINE AMINOTRANSFERASE 14 U/L (12-78); ALBUMIN 1.9 G/DL (3.4-5.0); ALBUMIN/GLOBULIN RATIO 0.5 (1.1-1.5); ALKALINE PHOSPHATASE 146 IU/L (46-116); ANION GAP 7 (8-16); ASPARTATE AMINO TRANSFERASE 18 U/L (10-37); BILIRUBIN,TOTAL 1.3 MG/DL (0.1-1.0); BLOOD UREA NITROGEN 20 MG/DL (7-18); BUN/CREATININE RATIO 16.3 (6.6-38.0); CHLORIDE 100 MMOL/L (99-107); CREATININE 1.23 MG/DL (0.40-0.90); GLUCOSE 126 MG/DL (70-104); POTASSIUM 3.6 MMOL/L (3.5-5.1); SODIUM 134 MMOL/L (135-145); TOTAL CARBON DIOXIDE 26.9 MMOL/L (24-32); TOTAL PROTEIN 5.6 G/DL (6.4-8.2); eGFR 42 ML/MIN
[2021-11-07] MEDS: K and/or MAG REPLACEMENT MC SCH ×2 (08:00→20:00)
[2021-11-07] MEDS: lactobacillus rhamnosus 10,000 MMU CELLS/CAPSULE PO SCH ×2 (08:27→19:30)
[2021-11-07] MEDS: amLODIPine 5mg tablet PO SCH (08:27)
[2021-11-07] MEDS: sucralfate 1 gm tablet PO SCH ×4 (08:28→20:30)
[2021-11-07] MEDS: meropenem inj 1 GM in normal saline 100ml IV soln 100 ML IV SCH ×2 (10:44→19:33)
[2021-11-07 11:00] VITALS: BP 149/75
[2021-11-07 15:00] VITALS: BP 147/69
[2021-11-07] MEDS: insulin Lispro (HumaLOG) vial - multi-dose SQ SCH ×2 (15:24→19:54)
[2021-11-07] MEDS ORDERED: potassium Cl 20 mEq SR tablet PO ONE ×2 (16:15→16:45)
[2021-11-07 18:00] VITALS: BP 99/55
[2021-11-07] MEDS: oxyCODONE/APAP 10/325mg tablet PO PRN (19:31)
[2021-11-07] MEDS ORDERED: polyvinyl alcohol ophthalmic drops 15ml bottle EACHEYE PRN (19:40)
[2021-11-07] MEDS: insulin glargine (Lantus) pen - multi-dose SQ SCH (21:55)
[2021-11-08] MEDS: pantoprazole 40MG/NS 100ML BAG 100 ML IV SCH ×5 (01:00→22:21)
[2021-11-08 02:00] VITALS: BP 132/62
--- NOTE | 2021-11-08 02:57 | NUR ---
Pt reported feeling cold; temp 98.0 obtained. Denied pain at this time.
[2021-11-08] MEDS: oxyCODONE/APAP 10/325mg tablet PO PRN ×2 (04:31→06:23)
[2021-11-08 06:42] LABS: BASOPHILS % (AUTO) 0.2 % (0-1); EOSINOPHILS # (AUTO) 0.1 X10'3 (0-0.9); EOSINOPHILS % (AUTO) 0.4 % (0-6); HEMATOCRIT 30.1 % (35.0-45.0); HEMOGLOBIN 10.1 g/dl (12.0-16.0); LYMPHOCYTES # (AUTO) 0.2 X10'3 (1.1-4.8); LYMPHOCYTES % (AUTO) 1.3 % (21-51); MEAN CORPUSCULAR HGB CONC 33.5 g/dL (33.0-36.5); MEAN CORPUSCULAR VOLUME 83.8 FL (78-98); MEAN PLATELET VOLUME 9.3 FL (7.4-10.4); MONOCYTES # (AUTO) 0.3 X10'3 (0-0.9); MONOCYTES % (AUTO) 1.6 % (2-12); NEUTROPHILS # (AUTO) 15.5 X10'3 (1.8-7.7); NEUTROPHILS % (AUTO) 96.5 % (42-75); PLATELET COUNT 185 X10'3 (140-440); RED BLOOD COUNT 3.59 X10'6 (4.20-5.60); RED CELL DISTRIBUTION WIDTH 16.8 % (11.5-14.5)
--- NOTE | 2021-11-08 06:52 | NUR ---
Patient in room PCU 3019. I have received report from GENNA PAIZ and had the opportunity to ask questions and assume patient care.
[2021-11-08 06:55] LABS: ALANINE AMINOTRANSFERASE 13 U/L (12-78); ALBUMIN 1.9 G/DL (3.4-5.0); ALBUMIN/GLOBULIN RATIO 0.5 (1.1-1.5); ALKALINE PHOSPHATASE 152 IU/L (46-116); ANION GAP 9 (8-16); ASPARTATE AMINO TRANSFERASE 20 U/L (10-37); BILIRUBIN,TOTAL 1.2 MG/DL (0.1-1.0); BLOOD UREA NITROGEN 18 MG/DL (7-18); BUN/CREATININE RATIO 14.1 (6.6-38.0); CALCIUM 7.8 MG/DL (8.5-10.1); CHLORIDE 100 MMOL/L (99-107); CREATININE 1.28 MG/DL (0.40-0.90); GLUCOSE 148 MG/DL (70-104); POTASSIUM 3.4 MMOL/L (3.5-5.1); SODIUM 134 MMOL/L (135-145); TOTAL CARBON DIOXIDE 25.5 MMOL/L (24-32); TOTAL PROTEIN 5.8 G/DL (6.4-8.2); eGFR 40 ML/MIN
[2021-11-08] MEDS: meropenem inj 1 GM in normal saline 100ml IV soln 100 ML IV SCH ×2 (08:13→19:56)
[2021-11-08] MEDS: lactobacillus rhamnosus 10,000 MMU CELLS/CAPSULE PO SCH ×2 (08:14→19:54)
[2021-11-08] MEDS: amLODIPine 5mg tablet PO SCH (08:14)
[2021-11-08] MEDS: sucralfate 1 gm tablet PO SCH ×4 (08:14→19:54)
[2021-11-08] MEDS: insulin Lispro (HumaLOG) vial - multi-dose SQ SCH (09:36)
[2021-11-08 11:00] VITALS: BP 102/55
--- NOTE | 2021-11-08 14:34 | NUR ---
[phone] MESSAGE: DR. RAQUEL OLIVO [id number] [employer] DIRECTOR OF REVENUE CYCLE MANAGEMENT ASK IF THE PATIENT CONTINUE IN CLEAR LIQUID OR YOU WANT TO ADVANCE TO SOFT MECHANICAL CARB CONTROL.
[2021-11-08] MEDS ORDERED: potassium Cl 20 mEq SR tablet PO PRN (14:40)
[2021-11-08 15:00] VITALS: BP 90/56
--- NOTE | 2021-11-08 15:36 | NUR ---
Reassessment: Patient's diet was advanced to clear liquids and pt documented with 25-50% PO intake not meeting estimated nutrient needs though unable to d/t the nature of diet order. TC to RN to discuss diet advancement versus nutrition support given pt with an insufficient diet since admit (7 days). Per RN no visible GIB at this time and RN to discuss diet advancement with physician. Since conversation with RN diet has been advanced to mechanical soft CHO controlled, to begin at dinner. RN reports patient's family is bringing in food to optimize PO intake. LBM 11/05 per I&O. Will continue to follow closely. Recommendations: 1) Continue mechanical soft CHO controlled; liberalize to regular diet if BG levels well controlled or pt with poor PO intake 2) Monitor need for ONS/additional protein 3) Bowel care per MD 4) Scaled weight this admit; weekly scaled weights thereafter Addendum: 11/08/21 at [address] Amended: Links added.
[2021-11-08] MEDS: HYDROmorphone inj. 0.5 MG/0.5 ML DISP.SYRIN IV PRN (19:54)
[2021-11-08] MEDS: K and/or MAG REPLACEMENT MC SCH (20:00)
[2021-11-08] MEDS: insulin glargine (Lantus) pen - multi-dose SQ SCH (21:00)
[2021-11-09] MEDS: HYDROmorphone inj. 0.5 MG/0.5 ML DISP.SYRIN IV PRN ×2 (01:20→03:38)
--- NOTE | 2021-11-09 03:46 | NUR ---
Patient lying in bed with eyes close, Family at bedside. State she was very assisted with another blanket. Family also said patient was in pain, prn dilaudid given effective she rested no further c/o pain
[2021-11-09 06:00] VITALS: BP 122/68
[2021-11-09 07:37] LABS: BASOPHILS % (AUTO) 0.4 % (0-1); EOSINOPHILS # (AUTO) 0.1 X10'3 (0-0.9); EOSINOPHILS % (AUTO) 0.8 % (0-6); HEMATOCRIT 29.1 % (35.0-45.0); HEMOGLOBIN 9.7 g/dl (12.0-16.0); LYMPHOCYTES # (AUTO) 0.7 X10'3 (1.1-4.8); LYMPHOCYTES % (AUTO) 7.9 % (21-51); MEAN CORPUSCULAR HEMOGLOBIN 28.3 PG (27.0-31.0); MEAN CORPUSCULAR HGB CONC 33.4 g/dL (33.0-36.5); MEAN CORPUSCULAR VOLUME 84.6 FL (78-98); MEAN PLATELET VOLUME 9.2 FL (7.4-10.4); MONOCYTES # (AUTO) 0.6 X10'3 (0-0.9); MONOCYTES % (AUTO) 7.4 % (2-12); NEUTROPHILS # (AUTO) 7.3 X10'3 (1.8-7.7); NEUTROPHILS % (AUTO) 83.5 % (42-75); PLATELET COUNT 198 X10'3 (140-440); RED BLOOD COUNT 3.44 X10'6 (4.20-5.60); RED CELL DISTRIBUTION WIDTH 16.5 % (11.5-14.5); WHITE BLOOD COUNT 8.7 X10'3 (4.5-11.0)
[2021-11-09] MEDS: K and/or MAG REPLACEMENT MC SCH ×2 (08:00→20:00)
[2021-11-09] MEDS: polyvinyl alcohol ophthalmic drops 15ml bottle EACHEYE SCH ×3 (08:00→20:00)
[2021-11-09] MEDS: meropenem inj 1 GM in normal saline 100ml IV soln 100 ML IV SCH ×2 (08:01→21:56)
[2021-11-09] MEDS: pantoprazole 40MG/NS 100ML BAG 100 ML IV SCH ×4 (08:02→21:46)
[2021-11-09] MEDS: sucralfate 1 gm tablet PO SCH ×4 (08:06→21:46)
[2021-11-09] MEDS: lactobacillus rhamnosus 10,000 MMU CELLS/CAPSULE PO SCH ×2 (08:06→20:31)
[2021-11-09] MEDS: amLODIPine 5mg tablet PO SCH (08:07)
[2021-11-09 08:08] LABS: ALANINE AMINOTRANSFERASE 12 U/L (12-78); ALBUMIN 1.8 G/DL (3.4-5.0); ALBUMIN/GLOBULIN RATIO 0.5 (1.1-1.5); ALKALINE PHOSPHATASE 138 IU/L (46-116); ANION GAP 6 (8-16); ASPARTATE AMINO TRANSFERASE 15 U/L (10-37); BILIRUBIN,TOTAL 0.9 MG/DL (0.1-1.0); BLOOD UREA NITROGEN 19 MG/DL (7-18); BUN/CREATININE RATIO 13.8 (6.6-38.0); CALCIUM 7.7 MG/DL (8.5-10.1); CHLORIDE 102 MMOL/L (99-107); CREATININE 1.38 MG/DL (0.40-0.90); GLUCOSE 202 MG/DL (70-104); POTASSIUM 4.2 MMOL/L (3.5-5.1); SODIUM 135 MMOL/L (135-145); TOTAL CARBON DIOXIDE 27.4 MMOL/L (24-32); TOTAL PROTEIN 5.7 G/DL (6.4-8.2); eGFR 37 ML/MIN
[2021-11-09] MEDS: insulin Lispro (HumaLOG) vial - multi-dose SQ SCH (14:20)
[2021-11-09 15:00] VITALS: BP 125/69
[2021-11-09 20:21] VITALS: BP 129/73
[2021-11-09] MEDS: acetaminophen 325mg tablet PO PRN (20:34)
[2021-11-09] MEDS: insulin glargine (Lantus) pen - multi-dose SQ SCH (21:00)
[2021-11-09 22:00] VITALS: BP 114/59
[2021-11-10] MEDS: pantoprazole 40MG/NS 100ML BAG 100 ML IV SCH ×5 (01:00→21:09)
[2021-11-10 02:00] VITALS: BP 117/55
[2021-11-10] MEDS: polyvinyl alcohol ophthalmic drops 15ml bottle EACHEYE SCH ×2 (02:00→08:00)
[2021-11-10 06:00] VITALS: BP 140/56
[2021-11-10 06:49] LABS: BASOPHILS # (AUTO) 0.1 X10'3 (0-0.2); BASOPHILS % (AUTO) 0.8 % (0-1); EOSINOPHILS # (AUTO) 0.1 X10'3 (0-0.9); EOSINOPHILS % (AUTO) 1.5 % (0-6); HEMATOCRIT 26.6 % (35.0-45.0); LYMPHOCYTES # (AUTO) 0.7 X10'3 (1.1-4.8); LYMPHOCYTES % (AUTO) 9.5 % (21-51); MEAN CORPUSCULAR HEMOGLOBIN 28.4 PG (27.0-31.0); MEAN CORPUSCULAR HGB CONC 33.8 g/dL (33.0-36.5); MEAN CORPUSCULAR VOLUME 83.9 FL (78-98); MEAN PLATELET VOLUME 9.5 FL (7.4-10.4); MONOCYTES # (AUTO) 0.7 X10'3 (0-0.9); MONOCYTES % (AUTO) 8.8 % (2-12); NEUTROPHILS # (AUTO) 5.9 X10'3 (1.8-7.7); NEUTROPHILS % (AUTO) 79.4 % (42-75); PLATELET COUNT 224 X10'3 (140-440); RED BLOOD COUNT 3.17 X10'6 (4.20-5.60); RED CELL DISTRIBUTION WIDTH 16.5 % (11.5-14.5); WHITE BLOOD COUNT 7.4 X10'3 (4.5-11.0)
[2021-11-10 07:13] LABS: ALANINE AMINOTRANSFERASE 13 U/L (12-78); ALBUMIN 1.8 G/DL (3.4-5.0); ALBUMIN/GLOBULIN RATIO 0.5 (1.1-1.5); ALKALINE PHOSPHATASE 126 IU/L (46-116); ANION GAP 8 (8-16); ASPARTATE AMINO TRANSFERASE 13 U/L (10-37); BILIRUBIN,TOTAL 0.6 MG/DL (0.1-1.0); BLOOD UREA NITROGEN 18 MG/DL (7-18); BUN/CREATININE RATIO 14.8 (6.6-38.0); CALCIUM 7.9 MG/DL (8.5-10.1); CHLORIDE 104 MMOL/L (99-107); CREATININE 1.22 MG/DL (0.40-0.90); GLUCOSE 148 MG/DL (70-104); POTASSIUM 3.9 MMOL/L (3.5-5.1); SODIUM 137 MMOL/L (135-145); TOTAL PROTEIN 5.4 G/DL (6.4-8.2); eGFR 42 ML/MIN
[2021-11-10] MEDS: lactobacillus rhamnosus 10,000 MMU CELLS/CAPSULE PO SCH ×2 (09:13→19:20)
[2021-11-10] MEDS: sucralfate 1 gm tablet PO SCH ×3 (09:13→21:00)
[2021-11-10] MEDS: amLODIPine 5mg tablet PO SCH (09:13)
[2021-11-10] MEDS: meropenem inj 1 GM in normal saline 100ml IV soln 100 ML IV SCH ×2 (09:32→19:20)
[2021-11-10 11:00] VITALS: BP 101/50
[2021-11-10] MEDS: oxyCODONE/APAP 10/325mg tablet PO PRN ×2 (11:28→13:45)
[2021-11-10 15:00] VITALS: BP 118/62
[2021-11-10 18:00] VITALS: BP 148/63
[2021-11-10] MEDS: insulin Lispro (HumaLOG) vial - multi-dose SQ SCH (18:59)
[2021-11-10] MEDS: insulin glargine (Lantus) pen - multi-dose SQ SCH (21:34)
[2021-11-11] MEDS: pantoprazole 40MG/NS 100ML BAG 100 ML IV SCH (01:00)
[2021-11-11 02:00] VITALS: BP 141/61
[2021-11-11] MEDS: acetaminophen 325mg tablet PO PRN (04:31)
[2021-11-11 06:00] VITALS: BP 155/65
[2021-11-11 06:50] LABS: BASOPHILS # (AUTO) 0.1 X10'3 (0-0.2); BASOPHILS % (AUTO) 0.9 % (0-1); EOSINOPHILS # (AUTO) 0.1 X10'3 (0-0.9); EOSINOPHILS % (AUTO) 1.5 % (0-6); HEMATOCRIT 25.8 % (35.0-45.0); HEMOGLOBIN 8.6 g/dl (12.0-16.0); LYMPHOCYTES # (AUTO) 0.7 X10'3 (1.1-4.8); LYMPHOCYTES % (AUTO) 9.7 % (21-51); MEAN CORPUSCULAR HGB CONC 33.3 g/dL (33.0-36.5); MEAN CORPUSCULAR VOLUME 84.3 FL (78-98); MEAN PLATELET VOLUME 9.9 FL (7.4-10.4); MONOCYTES # (AUTO) 0.6 X10'3 (0-0.9); NEUTROPHILS % (AUTO) 79.9 % (42-75); PLATELET COUNT 252 X10'3 (140-440); RED BLOOD COUNT 3.06 X10'6 (4.20-5.60); RED CELL DISTRIBUTION WIDTH 16.6 % (11.5-14.5); WHITE BLOOD COUNT 7.5 X10'3 (4.5-11.0)
[2021-11-11 07:33] LABS: ALANINE AMINOTRANSFERASE 14 U/L (12-78); ALBUMIN 1.8 G/DL (3.4-5.0); ALBUMIN/GLOBULIN RATIO 0.5 (1.1-1.5); ALKALINE PHOSPHATASE 120 IU/L (46-116); ANION GAP 8 (8-16); ASPARTATE AMINO TRANSFERASE 14 U/L (10-37); BILIRUBIN,TOTAL 0.5 MG/DL (0.1-1.0); BLOOD UREA NITROGEN 17 MG/DL (7-18); BUN/CREATININE RATIO 13.2 (6.6-38.0); CHLORIDE 105 MMOL/L (99-107); CREATININE 1.29 MG/DL (0.40-0.90); GLUCOSE 138 MG/DL (70-104); SODIUM 138 MMOL/L (135-145); TOTAL PROTEIN 5.7 G/DL (6.4-8.2); eGFR 40 ML/MIN
[2021-11-11] MEDS: sucralfate 1 gm tablet PO SCH (09:51)
[2021-11-11] MEDS: lactobacillus rhamnosus 10,000 MMU CELLS/CAPSULE PO SCH ×2 (09:51→19:23)
[2021-11-11] MEDS: amLODIPine 5mg tablet PO SCH (09:52)
[2021-11-11] MEDS: meropenem inj 1 GM in normal saline 100ml IV soln 100 ML IV SCH (10:03)
[2021-11-11] MEDS ORDERED: ertapenem sod inj 1 GM in normal saline 100ml IV soln 100 ML IV SCH (10:40)
[2021-11-11 11:00] VITALS: BP 124/69
[2021-11-11] MEDS ORDERED: NOR5T PO (11:14)
[2021-11-11] MEDS ORDERED: PANT-47 PO (11:14)
[2021-11-11] MEDS ORDERED: SUCR1TAB34 PO (11:14)
--- NOTE | 2021-11-11 14:23 | NUR ---
Reassessment: Pt continues on [facility] soft/Carb controlled diet w/ avg 50% intake of meals in addition to some food BIB family. Overall likely meeting minimum est nutrient needs and close to 85-90% of est protein needs. LBM 11/05 per I&O, pt could benefit from the addition of routine bowel care per MD discretion given possible 6 days constipation. Will continue to follow closely. Recommendations: 1) Continue mechanical soft CHO controlled; liberalize to regular diet if BG levels well controlled or pt with poor PO intake 2) Monitor need for ONS/additional protein 3) Bowel care per MD 4) Scaled weight this admit; weekly scaled weights thereafter Addendum: 11/11/21 at [address] Amended: Links added.
[2021-11-11 18:00] VITALS: BP 129/64
[2021-11-11] MEDS: insulin glargine (Lantus) pen - multi-dose SQ SCH (21:24)
[2021-11-11] MEDS: insulin Lispro (HumaLOG) vial - multi-dose SQ SCH (21:25)
[2021-11-11 22:00] VITALS: BP 138/61
[2021-11-12 02:00] VITALS: BP 144/72
[2021-11-12 06:00] VITALS: BP 129/61
[2021-11-12] MEDS: lactobacillus rhamnosus 10,000 MMU CELLS/CAPSULE PO SCH (09:19)
[2021-11-12 09:20] VITALS: BP_SYST 143
[2021-11-12] MEDS: amLODIPine 5mg tablet PO SCH (09:20)
--- NOTE | 2021-11-12 13:02 | NUR ---
PT DISCHARGED ACCOMPANIED PER FAMILY AND STAFF TO PRIVATE VEHICLE, TEACHING AND INSTRUCTIONS GIVEN REGARDING COMPLIANCE TO MEDICATIONS,FOLLOW-UP APPTS GIVEN TO FAMILY, NEW AND DISCONTINUED PRESCRIPTIONS CALLED TO JANI JOSEPH@ [phone] PER FAMILY REQUEST. 7CM RIGHT ARM PICC LINE IN PLACE AND WITHOUT COMPLICATION AT SITE, SON STATES HE HAS HOME HEALTH INFORMATION RECEIVED AND ARRANGED WITH CASEMANAGER. FAMILY STATES PT HAS ALL BELONGINGS.
[2021-11-15 10:17] LABS: OCCULT BLOOD STOOL POSITIVE (Neg)
== END 2021-11-12 13:15 | disposition home or self-care (01) | DRG 871 ==
LOC: ER 12:46 → ED HOLD 22:35 → SUR 3N 11-02 00:35 → PCU 3S 11-02 14:42
PROVIDERS: ADMIT Internal Medicine; ATTEND Internal Medicine
PROC: 30233N1 Transfusion of Nonautologous Red Blood Cells into Peripheral Vein, Percutaneous Approach (ICD-10-PCS; 2021-11-01)
PROC: 0DB68ZX Excision of Stomach, Via Natural or Artificial Opening Endoscopic, Diagnostic (ICD-10-PCS; principal; 2021-11-05)
PROC: 02HV33Z Insertion of Infusion Device into Superior Vena Cava, Percutaneous Approach (ICD-10-PCS; 2021-11-11)
PROC: B548ZZA Ultrasonography of Superior Vena Cava, Guidance (ICD-10-PCS; 2021-11-11)
DX: A41.51 Sepsis due to Escherichia coli [E. coli] (principal); N17.0 Acute kidney failure with tubular necrosis; K25.4 Chronic or unspecified gastric ulcer with hemorrhage; D62 Acute posthemorrhagic anemia; N13.6 Pyonephrosis; E87.2 Acidosis; Z20.822 Contact with and (suspected) exposure to COVID-19; R31.9 Hematuria, unspecified; I10 Essential (primary) hypertension; E11.65 Type 2 diabetes mellitus with hyperglycemia; E11.40 Type 2 diabetes mellitus with diabetic neuropathy, unspecified; K21.9 Gastro-esophageal reflux disease without esophagitis; E87.5 Hyperkalemia; H53.8 Other visual disturbances; E78.5 Hyperlipidemia, unspecified; E86.9 Volume depletion, unspecified; K44.9 Diaphragmatic hernia without obstruction or gangrene; Z79.84 Long term (current) use of oral hypoglycemic drugs; Z87.442 Personal history of urinary calculi; Z79.899 Other long term (current) drug therapy; I95.9 Hypotension, unspecified
CPT/HCPCS: 36415; 36430; 36569; 43239; 71045; 74176; 76770; 76942; 80048; 80053; 80202; 80320; 81001; 82272; 82948; 83036; 83605; 83690; 83735; 83880; 84145; 84484; 85007; 85008; 85025; 85027; 85610; 85730; 86885; 86900; 86901; 86920; 87040; 87077; 87081; 87088; 87186; 87635; 88305; 93005; 93306; 94640; 94760; 96361; 96365; 96366; 96368; 96375; 99152; 99291; A4620; A7015; C1751; C9113; C9803; G0378; J0610; J0696; J1170; J1335; J1815; J2185; J2250; J2270; J2405; J2543; J3010; J3370; J3475; J3480; J3490; J7030; J7040; J7070; P9016; Q9963